=== PATIENT | female | born 1965 | race Caucasian/White ===

== ENCOUNTER 2023-10-04 11:25 | Outpatient (CLI) | payer OTHER, BC, SELFPAY | END 2023-10-04 11:26 | disposition home or self-care (01) | PROVIDERS: PCP Family Medicine; Visit Provider Family Medicine | DX: E78.5 Hyperlipidemia, unspecified (principal); E03.9 Hypothyroidism, unspecified; I10 Essential (primary) hypertension | CPT/HCPCS: 80048; 80061; 84439; 84443; 84460 ==

== ENCOUNTER 2024-01-11 15:47 | Outpatient (CLI) | payer OTHER, BC, SELFPAY ==
[2024-01-11 22:12] LABS: Microalbumin Urine 2 mg/dL
[2024-01-11 22:14] LABS: Creatinine Urine 80.2 mg/dL; Microalbumin Creatinine Ratio 20 mg/g (0-30)
[2024-01-11 22:40] LABS: TSH With Reflex to FT4* 0.065 uIU/mL (0.270-4.200)
[2024-01-11 23:44] LABS: Free T4 Free Thyroxine* 2.03 ng/dL (0.70-1.85)
== END 2024-01-11 15:48 | disposition home or self-care (01) ==
PROVIDERS: PCP Family Medicine; Visit Provider Family Medicine
DX: Z00.00 Encounter for general adult medical examination without abnormal findings (principal); E11.9 Type 2 diabetes mellitus without complications; E03.9 Hypothyroidism, unspecified; E55.9 Vitamin D deficiency, unspecified; E78.2 Mixed hyperlipidemia; Z12.4 Encounter for screening for malignant neoplasm of cervix
CPT/HCPCS: 82043; 82570; 84439; 84443; 87624; 87625; 88141; 88142

== ENCOUNTER 2024-01-11 17:15 | Outpatient (CLI) | payer OTHER, BC, SELFPAY ==
--- NOTE | 2024-01-11 17:20 | CRLHL7_ITS ---
For Patients: As a result of the Century Cures Act, medical imaging exams and procedure reports are released immediately into your electronic medical record. You may view this report before your referring provider. If you have questions, please contact your health care provider. BILATERAL SCREENING MAMMOGRAM WITH COMPUTER-AIDED DETECTION AND TOMOSYNTHESIS TECHNIQUE: CC and MLO views were obtained. These mammographic images have been obtained using full-field digital technique. These mammographic images were interpreted with the benefit of computer-aided detection. Breast Tomosynthesis was used in this interpretation. COMPARISON FILM: 10/01/21, 12/08/17, 08/20/16. FINDINGS: There are scattered areas of fibroglandular density. IMPRESSION: There is no radiographic evidence for malignancy. ASSESSMENT: BI-RADS Category 1: Negative RECOMMENDATION: Routine screening mammogram in 1 year. A lay language report of this examination will be provided to the patient. Michael Clark M.D. Diagnostic Radiologist [email or web address] SP/Dictated by: Michael Clark MD @ 01/14/2024 8:32:00 AM (Electronically Signed)
== END 2024-01-11 17:16 | disposition home or self-care (01) ==
LOC: MAMMO 17:16
PROVIDERS: PCP Family Medicine; Visit Provider Family Medicine
DX: Z12.31 Encounter for screening mammogram for malignant neoplasm of breast (principal)
CPT/HCPCS: 77063; 77067

== ENCOUNTER 2024-01-12 19:47 | Outpatient (CLI) | payer OTHER, BC, SELFPAY ==
--- NOTE | 2024-01-25 12:22 | W.PM.SLEEP ---
Sleep Study Details Details Interpreting Provider: Chelsea Date of Sleep Study: 01/12/24 Sleep Study Details: STUDY TYPE:? Home unattended ? BMI:? 39 ORDERING PROVIDER:? Agus INDICATION:? Concern about sleep apnea ? SLEEP SUMMARY:? 385.5 minutes monitored RESPIRATORY SUMMARY:? AHI 14.9, left lateral 11.1, supine 16.1, right lateral 17.6 Low oxygen 81 13% of study oxygen less than 90% Snoring 30.3% PERIODIC LIMB MOVEMENTS OF SLEEP:? Not recorded CARDIAC:? Range 66-103, mean 78.5 beats per minute IMPRESSION:? Mild to moderate obstructive sleep apnea RECOMMENDATION: Treatment options include weight loss, CPAP, dental appliance and/or airway expansion surgery.
== END 2024-01-12 19:48 | disposition home or self-care (01) ==
LOC: SLEEP 19:48
PROVIDERS: PCP Family Medicine; Visit Provider Family Medicine
DX: G47.33 Obstructive sleep apnea (adult) (pediatric) (principal)
CPT/HCPCS: 95806

== ENCOUNTER 2024-10-20 09:00 | Outpatient (CLI) | payer OTHER, BC, SELFPAY | END 2024-10-20 09:01 | disposition home or self-care (01) | LOC: FBOREF 09:01 | PROVIDERS: PCP Family Medicine; Visit Provider Family Medicine | DX: E03.9 Hypothyroidism, unspecified (principal); I10 Essential (primary) hypertension; E78.2 Mixed hyperlipidemia | CPT/HCPCS: 80048; 80061; 84439; 84443; 84460 ==

== ENCOUNTER 2025-01-25 09:11 | Outpatient (CLI) | payer OTHER, BC, SELFPAY | END 2025-01-25 09:12 | disposition home or self-care (01) | LOC: FBOREF 09:11 | PROVIDERS: PCP Family Medicine; Visit Provider Family Medicine | DX: E11.9 Type 2 diabetes mellitus without complications (principal) | CPT/HCPCS: 82043; 82570 ==

== ENCOUNTER 2025-02-20 15:01 | Outpatient (CLI) | payer OTHER, BC, SELFPAY ==
--- NOTE | 2025-02-20 15:00 | CRLHL7_ITS ---
For Patients: As a result of the Century Cures Act, medical imaging exams and procedure reports are released immediately into your electronic medical record. You may view this report before your referring provider. If you have questions, please contact your health care provider. INDICATION: BILATERAL SCREENING MAMMOGRAM, ASYMPTOMATIC 59 Y/O FEMALE COMPARISON: 01/11/2024, 10/01/2021, 12/08/2017 TECHNIQUE: Digital mammogram in CC and MLO projections including computer-aided detection (CAD) and tomosynthesis. BREAST COMPOSITION: There are scattered areas of fibroglandular density. FINDINGS: No suspicious findings. ASSESSMENT: BI-RADS 1 Negative RECOMMENDATION: Annual screening mammogram. A lay language report of this examination will be provided to the patient. Dictated by: Michael Clark MD @ 02/21/2025 09:30:27 (Electronically Signed)
== END 2025-02-20 15:02 | disposition home or self-care (01) ==
LOC: MAMMO 15:01
PROVIDERS: PCP Family Medicine; Visit Provider Family Medicine
DX: Z12.31 Encounter for screening mammogram for malignant neoplasm of breast (principal)
CPT/HCPCS: 77063; 77067

== ENCOUNTER 2025-02-21 13:57 | Outpatient (CLI) | payer OTHER, BC, SELFPAY | END 2025-02-21 13:58 | disposition home or self-care (01) | LOC: RAD 13:58 | PROVIDERS: PCP Family Medicine; Visit Provider Internal Medicine | DX: I10 Essential (primary) hypertension (principal); Z82.79 Family history of other congenital malformations, deformations and chromosomal abnormalities | CPT/HCPCS: 93306 ==